=== PATIENT | female | born 2000 | race Hispanic/Latino ===

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

== ENCOUNTER 2021-10-30 10:50 | Emergency (ER) | payer OTHER ==
--- OUTSIDE RECORDS SUMMARY | 2021-10-30 10:53 | XMS REPORT | Continuity of Care Document ---
:2000 Author Organization [facility] t Address [address] [place] [address] Care Team Providers Name Role Phone [phone] Primary Care Physician Unavailable Louis POLK Attending Clinician LOUIS Attending Clinician Unavailable VANCE Attending Clinician Unavailable TAI Attending Clinician Unavailable Yuan JOHNSON Attending Clinician Unavailable Payers Payer Name Policy Type Policy Number Effective Date Expiration Date S ivett [employer] [id number] 2020 CHIP 00:00:00 Problems Condition Condition Condition Status Onset Resolution Last Treating Co mments Source Name Details Category Date Date Treatment Clinician Date Retinoblas Retinoblas Disease Active Overview : Univers ayesha ayesha 10-02 Formattin ity of 00:00: g of this [place] 00 note Medical might be Branch different from the original. Right eye, dx'd at 6 months of age Allergies, Adverse Reactions, Alerts Allergy Allergy Status Severity Reaction(s) Onset Inactive Treating Comm ents Source Name Type Date Date Clinician NO KNOWN Drug Active Univers ALLERGIE Class ity of S [facility] Social History Social Habit Start Date Stop Date Quantity Comments Source Exposure to Not sure [facility] SARS-CoV-2 [place] Medical (event) Branch Alcohol intake 2021-06-08 2021-06-08 Current [place] of 00:00:00 00:00:00 non-drinker of [facility] alcohol Branch (finding) Tobacco use and 2013-10-02 2013-10-02 Never used Universit y of exposure 00:00:00 00:00:00 [facility] Sex Assigned At [birth year] Universit y of 00:00:00 00:00:00 [facility] Smoking Status Start Date Stop Date Source Never smoker [facility] Branch Medications Ordered Filled Start Stop Current Ordering Indication Dosage Frequency Signature Comments Components Source Medication Medication Date Date Medication? Clinician (SIG) Name Name metroNIDAZO 2020-09 Yes [id number] 500mg Take 1 Univers LE 500 mg 0-01 tablet by ity o f tablet 00:00: mouth [place] 00 every 12 Medical (twelve) Branch hours. No known No Univers medications 9-29 ity of 10:51: [place] 08 Medical Branch Immunizations Ordered Immunization Filled Immunization Date Status Commen ts Source Name Name Influenza Virus 2013-10-02 Completed Universit y of Vaccine Nasal 00:00:00 [facility] al Branch HPV 2013-10-02 Completed University of 00:00:00 [facility] Influenza Virus 2013-10-02 Completed Universit y of Vaccine Nasal 00:00:00 [facility] al Branch HPV 2013-10-02 Completed University of 00:00:00 [facility] HPV 2013-05-05 Completed University of 00:00:00 [facility] HPV 2013-05-05 Completed University of 00:00:00 [facility] Meningococcal 2012-08-21 Completed University of Vaccine 00:00:00 [facility] TDAP 2012-08-21 Completed University of 00:00:00 [facility] Meningococcal 2012-08-21 Completed University of Vaccine 00:00:00 [facility] TDAP 2012-08-21 Completed University of 00:00:00 [facility] HPV 2011-10-20 Completed University of 00:00:00 [facility] HPV 2011-10-20 Completed University of 00:00:00 [facility] DTAP 2007-08-12 Completed University of 00:00:00 [facility] HEPATITIS A 2007-08-12 Completed University of 00:00:00 [facility] Influenza Virus 2007-08-12 Completed Universit y of Vaccine 00:00:00 [facility] DTAP 2007-08-12 Completed University of 00:00:00 [facility] HEPATITIS A 2007-08-12 Completed University of 00:00:00 [facility] Influenza Virus 2007-08-12 Completed Universit y of Vaccine 00:00:00 [facility] HEPATITIS A 2007-01-11 Completed University of 00:00:00 [facility] Polio (IPV/OPV) 2007-01-11 Completed Universit y of 00:00:00 [facility] HEPATITIS A 2007-01-11 Completed University of 00:00:00 [facility] Polio (IPV/OPV) 2007-01-11 Completed Universit y of 00:00:00 [facility] DTAP 2005-08-16 Completed University of 00:00:00 [facility] MMR 2005-08-16 Completed University of 00:00:00 [facility] Polio (IPV/OPV) 2005-08-16 Completed Universit y of 00:00:00 [facility] Varicella 2005-08-16 Completed University of (varivax)(chicken 00:00:00 [facility] edical pox) Branch DTAP 2005-08-16 Completed University of 00:00:00 [facility] MMR 2005-08-16 Completed University of 00:00:00 [facility] Polio (IPV/OPV) 2005-08-16 Completed Universit y of 00:00:00 [facility] Varicella 2005-08-16 Completed University of (varivax)(chicken 00:00:00 [facility] edical pox) Branch DTAP 2003-02-06 Completed University of 00:00:00 [facility] Hep B, Adol or Pedi 2003-02-06 Completed Unive rsity of Dosage 00:00:00 [facility] DTAP 2003-02-06 Completed University of 00:00:00 [facility] Hep B, Adol or Pedi 2003-02-06 Completed Unive rsity of Dosage 00:00:00 [facility] DTAP 2002-12-16 Completed University of 00:00:00 [facility] Hep B, Adol or Pedi 2002-12-16 Completed Unive rsity of Dosage 00:00:00 [facility] MMR 2002-12-16 Completed University of 00:00:00 [facility] Polio (IPV/OPV) 2002-12-16 Completed Universit y of 00:00:00 [facility] Varicella 2002-12-16 Completed University of (varivax)(chicken 00:00:00 [facility] edical pox) Branch DTAP 2002-12-16 Completed University of 00:00:00 [facility] Hep B, Adol or Pedi 2002-12-16 Completed Unive rsity of Dosage 00:00:00 [facility] MMR 2002-12-16 Completed University of 00:00:00 [facility] Polio (IPV/OPV) 2002-12-16 Completed Universit y of 00:00:00 [facility] Varicella 2002-12-16 Completed University of (varivax)(chicken 00:00:00 [facility] edical pox) Branch Hep B, Adol or Pedi 2000 Completed Unive rsity of Dosage 00:00:00 [facility] Hep B, Adol or Pedi 2000 Completed Unive rsity of Dosage 00:00:00 [facility] Vital Signs Vital Name Observation Time Observation Value Comments Source Heart rate 2021-06-08 14:38:00 77 /min [facility] Body temperature 2021-06-08 14:38:00 37.11 Marjorie [facility] Respiratory rate 2021-06-08 14:38:00 18 /min [facility] Body height 2021-06-08 14:38:00 160 cm [facility] Body weight 2021-06-08 14:38:00 67.586 kg [facility] BMI 2021-06-08 14:38:00 26.39 kg/m2 [facility] Body mass index 2021-06-08 14:38:00 84.87 % Unive rsity of (BMI) [Percentile] [facility] ical Per age and sex Branch Systolic blood 2021-06-08 14:38:00 109 mm[Hg] Univer sity of pressure [facility] Diastolic blood 2021-06-08 14:38:00 70 mm[Hg] Unive rsity of pressure [facility] WEIGHT 2021-01-27 11:10:00 62 kg HEIGHT 2021-01-27 11:10:00 157.5 cm Procedures This patient has no known procedures. Encounters Start End Encounter Admission Attending Care Care Encounter Source Date/Time Date/Time Type Type Clinicians Facility Department ID 2021-06-10 2021-06-10 Case Giovanni Noel [id number] Univers 00:00:00 00:00:00 Management Alysha [facility] [id number] ity [id number] [id number] [facility] Primary [facility] 2021-06-08 2021-06-08 Outpatient R [facility] [id number] Univers 11:00:00 11:00:00 [id number] [facility] 2021-06-08 2021-06-08 [facility] [id number] [facility] [place] [place] 09:22:20 10:16:55 Visit Alysha Escudero [id number] i ty nate Zaragoza [id number] Balaji esteves Professio [id number] Co dical [address] 2021-06-08 2021-06-08 Outpatient R LOUIS [facility] [id number] [facility] [place] [place] 09:30:00 09:30:00 ALYSHA marcelo [facility] 2021-02-28 2021-02-28 Outpatient HATTIE WOODARD [facility] MDA [id number] 12:26:02 23:59:00 JERRI bridges 2021-02-22 2021-02-22 Outpatient HATTIE WOODARD MDA MDA [id number] 17:42:46 17:42:55 JERRI bridges 2021-01-27 2021-01-27 Outpatient SWETHA WATKINS MDA MDA [id number] 08:23:03 23:59:00 Luis bridges 2021-01-27 2021-01-27 Outpatient HATTIE JOHNSON MDA MDA [id number] 10:57:17 12:08:40 LAURA bridges 2021-01-27 2021-01-27 Outpatient HATTIE JOHNSON MDA MDA [id number] 08:05:17 08:05:17 LAURA bridges Results This patient has no known results.
[2021-10-30 11:21] LABS: Urine Blood 3+ (Negative); Urine Glucose Negative (Negative); Urine Protein Negative (Negative); Urine Specific Gravity >=1.030 (1.005-1.030)
[2021-10-30 11:45] LABS: Urine Specific Gravity/Preg >1.030 (1.005-1.030)
[2021-10-30 11:45] LABS: Absolute Lymphocytes (CBC) 1.1 K/uL (0.7-4.9); Hematocrit 38.4 % (36.0-45.0); Lymphocytes % 10.9 % (15.3-44.8); RBC Red Blood Cell Count 4.11 M/uL (3.86-4.86)
[2021-10-30 11:49] LABS: Urine Bacteria <20 /HPF (<20); Urine Mucus 2+ /HPF (NONE SEEN)
[2021-10-30 11:58] LABS: ALT/SGPT 108 U/L (12-78); AST/SGOT 50 U/L (15-37); Albumin 3.9 g/dL (3.4-5.0); Alkaline Phosphatase 97 U/L (45-117); BUN Blood Urea Nitrogen 16 mg/dL (7-18); Bicarbonate 23 mmol/L (21-32); Bilirubin Direct 0.2 mg/dL (0-0.2); Bilirubin Total 0.6 mg/dL (0.2-1.0); Glucose Level 118 mg/dL (74-106); Lipase 74 U/L (73-393); Potassium 3.6 mmol/L (3.5-5.1); Protein, Total 8.1 g/dL (6.4-8.2); Sodium Level 138 mmol/L (136-145)
--- NOTE | 2021-10-30 12:43 | RAD REPORT ---
EXAM DESCRIPTION: CT - Abdomen Pelvis W Contrast - 10/30/2021 12:25 pm CLINICAL HISTORY: Abdominal pain COMPARISON: none. TECHNIQUE: Computed axial tomography of the abdomen pelvis was obtained. 100 cc Isovue-300 was admin istered intravenously. Oral contrast was not requested which limits evaluation of bowel. All CT scans are performed using dose optimization technique as appropriate and may include automated exposure control or mA/KV adjustment according to patient size. FINDINGS: Mild fatty liver. Left lobe is prominent. The spleen, pancreas, adrenals and left kidney are unremarkable. 13 millimeter low to intermediate density area within the lower pole right kidney. There is no evidence of diverticulitis. Proximal mid appendix normal. Borderline thickening of the distal appendix. No stranding within the a djacent fat. 2.1 centimeter left ovarian cyst. 2.4 centimeter right ovarian cyst. 3.6 x 2.4 centimeter low-density uterine fundus. IMPRESSION: 13 millimeter low to intermediate density area within the lower pole of the right kidney may represent an area of inflammation or complex cyst. Borderline enlargement of the distal appendix. This could represent an early distal tip appendicitis or a normal variant for the patient. If clinically indicated CT scan with oral contrast with opacific ation of the terminal ileum/cecum may be helpful for further evaluation. Small bilateral ovarian cysts without significant free fluid. 3.6 x 2.4 centimeter low-density area within the uterine fundus. This could represent a fibroid or en dometrial thickening. Pelvic ultrasound is recommended.
--- NOTE | 2021-10-30 15:34 | RAD REPORT ---
EXAM DESCRIPTION: CT - Abdomen Pelvis Wo Contrast - 10/30/2021 3:28 pm CLINICAL HISTORY: Abdominal pain COMPARISON: CT October 30, 2021 TECHNIQUE: Computed axial tomography of the abdomen and pelvis was obtained. Oral contrast was given All CT scans are performed using dose optimization technique as appropriate and may include automated exposure control or mA/KV adjustment according to patient size. FINDINGS: Almost the entire appendix is opacified with contrast. IMPRESSION: No evidence of appendicitis
--- NOTE | 2021-10-30 15:41 | RAD REPORT ---
EXAM DESCRIPTION: US - Pelvis Complete - 10/30/2021 1:56 pm CLINICAL HISTORY: Pelvic pain COMPARISON: CT October FINDINGS: The uterus is retroverted measuring 7 x 3 x 5 centimeters. The endometrial stripe is richmond l thickness. A large fundal mass is not visualized. 9 millimeter hypoechoic structure which abuts the uterine fundus may represent a subserosal fibroid. 2 centimeter complex right ovarian cyst. Right ovary contains blood flow and is normal in size. Left ovary was not visualized secondary to overlying bowel gas. Right and left adnexa unremarkable No significant free fluid IMPRESSION: Pelvic ultrasound does not demonstrate a uterine abnormality to explain the hypoechoic s tructure within the uterine fundus. It is unlikely to be significant. Equivocal 9 millimeter subserosal fibroid. 2 centimeter complex ovarian cyst is likely benign. No significant free fluid.
--- NOTE | 2021-10-30 15:53 | EDPHYS ---
Physician Documentation [facility] Name: Marcelle Pinzon Age: 21 yrs Sex: Female : 2000 Arrival Date: 10/30/2021 Time: 10:52 Bed 9 Private MD: ED Physician Dixon You HPI: 10/30 11:56 This 21 yrs old Female presents to ER via Ambulatory with complaints of Pelvic rn Pain, Vomiting. 11:56 The patient presents to the emergency department with abdominal pain, of the suprapubic rn area, described as crampy, and does not radiate. Onset: The symptoms/episode began/occurred this morning. Possible causes: unknown. The symptoms are aggravated by nothing. The symptoms are alleviated by nothing. Associated signs and symptoms: Pertinent positives: abdominal pain, nausea, Pertinent negatives: fever, GI bleeding, vaginal discharge. Severity of symptoms: At their worst the symptoms were moderate in the emergency department the symptoms have improved. The patient has experienced similar episodes in the past. The patient has not recently seen a physician. Pt reports lower abd cramping that began this AM, reports stopped her control 2 months ago, has been irregular, light vaginal bleeding this AM. No fever or trauma. Reports suprapubic pain. Reports pain causing nausea. No diarrhea. No urinary symptoms. 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 - Social history:: Smoking status: Patient denies any tobacco usage or history of. - Family history:: not pertinent. - Hospitalizations: : No recent hospitalization is reported. ROS: 11:56 Constitutional: Negative for fever, chills, and weight loss, Eyes: Negative for injury, rn pain, redness, and discharge, Neck: Negative for injury, pain, and swelling, Cardiovascular: Negative for chest pain, palpitations, and edema, Respiratory: Negative for shortness of breath, cough, wheezing, and pleuritic chest pain, Abdomen/GI: + lower abd pain and nausea Back: Negative for injury and pain, : + vaginal bleeding MS/Extremity: Negative for injury and deformity, Skin: Negative for injury, rash, and discoloration, Neuro: Negative for headache, weakness, numbness, tingling, and seizure. 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 Head/Face: Normocephalic, atraumatic. Cardiovascular: Regular rate and rhythm. No pulse deficits. Respiratory: No increased work of breathing, no retractions or nasal flaring. Abdomen/GI: soft, mild suprapubic tenderness, no rebound Skin: Warm, dry with normal turgor. Normal color with no rashes, no lesions, and no evidence of cellulitis. MS/ Extremity: Pulses equal, no cyanosis. Neurovascular intact. Full, normal range of motion. Equal circumference. Neuro: Awake and alert, GCS 15, oriented to person, place, time, and situation. Cranial nerves II-XII grossly intact. Motor strength 5/5 in all extremities. Sensory grossly intact. Cerebellar exam normal. Normal gait. Vital Signs: 11:03 BP 135 / 85; Pulse 85; Resp 18; Temp 98.4; Pulse Ox 100% on R/A; Weight 68.04 kg; ab2 Height 5 ft. 3 in. (160.02 cm); Pain 8/10; 16:09 BP 133 / 89; Pulse 86; Resp 18; Pulse Ox 100% on R/A; ld1 11:03 Body Mass Index 26.57 (68.04 kg, 160.02 cm) ab2 MDM: 11:12 Patient medically screened. rn 15:50 Differential diagnosis: Nonspecific abd pain, appendicitis, viral gastroenteritis, rn gastroenteritis, ovarian cyst, ovarian torsion. Data reviewed: vital signs, nurses notes, lab test result(s), radiologic studies, CT scan, ultrasound, and as a result, I will discharge patient. Counseling: I had a detailed discussion with the patient and/or guardian regarding: the historical points, exam findings, and any diagnostic results supporting the discharge/admit diagnosis, lab results, radiology results, the need for outpatient follow up, to return to the emergency department if symptoms worsen or persist or if there are any questions or concerns that arise at home. Response to treatment: the patient's symptoms have markedly improved after treatment, and as a result, I will discharge patient. Special discussion: I discussed with the patient/guardian in detail that at this point there is no indication for admission to the hospital. It is understood, however, that if the symptoms persist or worsen the patient needs to return immediately for re-evaluation. ED course: Original CT without oral contrast showed tip of appendix enlarged, recommended oral contrast, spoke with patient and mother and agreed to repeat after oral contrast administration, new CT neg for appendicitis. Will dc home as ovarian cyst vs normal menses. . 10/30 11:17 Order name: Urine Microscopic Only; Complete Time: 12:20 rn 10/30 11:21 Order name: Urine Dipstick-Ancillary; Complete Time: 11:23 EDMS 10/30 11:22 Order name: Urine --Ancillary (enter results); Complete Time: 12:20 em1 10/30 11:22 Order name: CBC with Diff; Complete Time: 12:20 rn 10/30 11:22 Order name: Basic Metabolic Panel; Complete Time: 12:20 rn 10/30 11:22 Order name: Hepatic Function; Complete Time: 12:20 rn 10/30 11:17 Order name: Urine Dipstick-Ancillary (obtain specimen); Complete Time: 11: rn 10/30 11:17 Order name: Urine Test (obtain specimen); Complete Time: 11:21 rn 10/30 11:22 Order name: IV Start; Complete Time: 11:39 rn 10/30 11:22 Order name: Lipase; Complete Time: 12:20 10/30 11:22 Order name: CT Abd/Pelvis - IV Contrast Only; Complete Time: 12:45 rn 10/30 12:53 Order name: US Pelvis Complete; Complete Time: 15:48 rn 10/30 13:35 Order name: Abdomen ; Complete Time: 15:48 EDOK 10/30 11:22 Order name: Labs collected and sent; Complete Time: 11:38 rn Administered Medications: No medications were administered Disposition Summary: 10/30/21 15:52 Discharge Ordered Location: Home rn Problem: new rn Symptoms: have improved rn Condition: Stable rn Diagnosis - Other ovarian cysts rn - Subserosal uterine fibroid rn Followup: rn - With: Private Physician - When: As needed - Reason: Recheck today's complaints, Re-evaluation by your physician Discharge Instructions: - Discharge Summary Sheet rn - Uterine Fibroids rn - Ovarian Cyst rn Forms: - Medication Reconciliation Form rn - Thank You Letter rn - Antibiotic weed burner - Prescription Opioid Use rn Prescriptions: - Diclofenac Sodium 75 mg Oral tablet,delayed release (DR/EC) - take 1 tablet by ORAL route 2 times per day; 15 tablet; Refills: 0, Product rn Selection Permitted Signatures: Dispatcher [employer] EDDixon Price MD MD rn Bleininger, Alexis ab2 Corrections: (The following items were deleted from the chart) 13:35 12:54 Abdomen Pelvis W [id number]+CT.RAD.BRZ ordered. EDMS EDMS
--- NOTE | 2021-10-30 15:53 | ER ---
Nurse's Notes [facility] Name: Marcelle Pinzon Age: 21 yrs Sex: Female : 2000 Arrival Date: 10/30/2021 Time: 10:52 Bed 9 Private MD: Diagnosis: Other ovarian cysts;Subserosal uterine fibroid Presentation: 10/30 11:03 Chief complaint: Patient states: Lower abdominal cramping and pelvic pain that started ab2 this morning. Having a very light menstrual cycle. Started vomiting this morning. Chief complaint:. Coronavirus screen: Vaccine status: Patient reports receiving the 2nd dose of the covid vaccine. Client denies travel out of the [place] in the last 14 days. Ebola Screen: Patient negative for fever greater than or equal to 101.5 degrees Fahrenheit, and additional compatible Ebola Virus Disease symptoms Patient denies travel to an Ebola-affected area in the 21 days before illness onset. Initial Sepsis Screen: Does the patient meet any 2 criteria? No. Patient's initial sepsis screen is negative. Does the patient have a suspected source of infection? No. Patient's initial sepsis screen is negative. Risk Assessment: Do you want to hurt yourself or someone else? Patient reports no desire to harm self or others. Onset of symptoms was October 30, 2021. 11:03 Method Of Arrival: Ambulatory ab2 11:03 Acuity: SUPRIYA 3 ab2 Triage Assessment: 11:06 General: Appears uncomfortable, Behavior is calm, cooperative. Pain: Complains of pain ab2 in groin and suprapubic area. EENT: No signs and/or symptoms were reported regarding the EENT system. Neuro: Level of Consciousness is awake, alert, obeys commands, Oriented to person, place, time, situation, Gait is steady, Speech is normal. Cardiovascular: Capillary refill < 3 seconds. Respiratory: Reports Airway is patent Respiratory effort is even, unlabored, Respiratory pattern is regular, symmetrical. GI: Reports lower abdominal pain, cramping. Derm: Skin is intact, is healthy with good turgor. Musculoskeletal: Circulation, motion, and sensation intact. 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 - Social history:: Smoking status: Patient denies any tobacco usage or history of. - Family history:: not pertinent. - Hospitalizations: : No recent hospitalization is reported. Screenin:08 Abuse screen: Denies threats or abuse. Denies injuries from another. Nutritional ab2 screening: No deficits noted. Tuberculosis screening: No symptoms or risk factors identified. Fall Risk None identified. Assessment: 11:17 General: Appears in no apparent distress. uncomfortable, Behavior is calm, cooperative, ab2 appropriate for age. Pain: Complains of pain in suprapubic area. Neuro: Level of Consciousness is awake, alert, obeys commands, Oriented to person, place, time, situation, Appropriate for age. Cardiovascular: No deficits noted. Denies chest pain, shortness of breath, Heart tones S1 S2 present Patient's skin is warm and dry. Respiratory: Airway is patent Respiratory effort is even, unlabored, Respiratory pattern is regular, symmetrical, Breath sounds are clear. GI: Abdomen is round non-distended, Bowel sounds present X 4 quads. Abdomen is tender to palpation in suprapubic area, right lower quadrant and left lower quadrant. : Reports vaginal bleeding that is light flow, Denies burning with urination, urinary frequency. EENT: No deficits noted. No signs and/or symptoms were reported regarding the EENT system. Derm: No deficits noted. No signs and/or symptoms reported regarding the dermatologic system. Skin is intact, is healthy with good turgor, Skin is dry, Skin is pink, warm \T\ dry. Musculoskeletal: No deficits noted. No signs and/or symptoms reported regarding the musculoskeletal system. Vital Signs: 11:03 BP 135 / 85; Pulse 85; Resp 18; Temp 98.4; Pulse Ox 100% on R/A; Weight 68.04 kg; ab2 Height 5 ft. 3 in. (160.02 cm); Pain 8/10; 16:09 BP 133 / 89; Pulse 86; Resp 18; Pulse Ox 100% on R/A; ld1 11:03 Body Mass Index 26.57 (68.04 kg, 160.02 cm) ab2 ED Course: 10:52 Patient arrived in ED. as 11:06 Triage completed. ab2 11:06 Arm band placed on right wrist. ab2 11:12 Dixon You MD is Attending Physician. rn 11:17 Wicho Goodwin is Primary Nurse. ab2 11:19 Patient has correct armband on for positive identification. ab2 11:19 No provider procedures requiring assistance completed. ab2 11:38 Inserted saline lock: 20 gauge in right antecubital area, using aseptic technique. ab2 Blood collected. 11:38 Basic Metabolic Panel Sent. ab2 11:39 Hepatic Function Sent. ab2 11:39 Lipase Sent. ab2 11:39 CBC with Diff Sent. ab2 12:24 CT Abd/Pelvis - IV Contrast Only In Process Unspecified. EDMS 13:56 US Pelvis Complete In Process Unspecified. EDMS 15:28 Abdomen In Process Unspecified. EDMS 16:10 IV discontinued, intact, bleeding controlled, No redness/swelling at site. ld1 Administered Medications: No medications were administered Outcome: 15:52 Discharge ordered by MD. rn 16:09 Discharged to home ambulatory. ld1 16:09 Condition: stable 16:09 Discharge instructions given to patient, Instructed on discharge instructions, follow up and referral plans. Demonstrated understanding of instructions, follow-up care, medications, Prescriptions given X 1. 16:10 Patient left the ED. ld1 Signatures: Dispatcher [employer] EDMS Sima Garay Roman, MD MD rn Dibbern, Lauren, RN RN ld1 Wicho Goodwin ab2
[2021-10-30 16:20] VITALS: TEMP 98.4; O2SAT 100
[2021-10-30 16:22] VITALS: BP 133/89
== END 2021-10-30 16:10 | disposition home or self-care (01) ==
LOC: ER 10:50
DX: N83.299 Other ovarian cyst, unspecified side (principal); D25.2 Subserosal leiomyoma of uterus
CPT/HCPCS: 85025; 80048; 36415; 81025; 80076; 83690; 74176; 74177; 76856; 99284; Q9967; 81003; 81015